=== PATIENT | female | born 1960 | race Caucasian/White ===

== ENCOUNTER 2018-01-27 01:31 | Inpatient (IN) | payer BC ==
[2018-01-27] VITALS (8 sets, daily range): BP systolic 102–170; BP diastolic 59–82
[~2018-01-27] VITALS: Ht 165.1 cm; Wt 112.2 kg
--- NOTE | 2018-01-27 01:45 | ED.ADGEN ---
Past History Past Medical History: IBS, Other Past Surgical History: Cervical Fusion, Cholecystectomy, Hysterectomy, Oophorectomy, Other Smoking: Cigarettes Alcohol Use: Occasionally Drug Use: Marijuana Adult General Chief Complaint Chief Complaint ".. I got up.. to go to the bathroom.. and I had a blackout.. I ve never had this before... My heart was racing before ... I went to bed... I have irritable bowel.. and I ve also been dizzy.. "..." and I just pooped in my pants..." HPI HPI Patient is a 57 year old female who presents with above hx and complaints abdomen discomfort, nausea, dizzy, diarrhea and syncope. Pt. denies previous episode of tachycardia, cardiac problems or dysrhythmia. Pt. any changes in food, meds or intake. Pt. has hx of irritable bowel disorder. Pt., denies any ill contracts, travel or hx of immunosuppression. Pt. states before she passed out her heart was racing. Paramedics advised she was very confused and slow to respond on their arrival. Pt. advised only time she had near syncope events previous was before her neck surgery, if she threw her head back she would black out, this symptom did not persist after cervical fusion 2004. Pt. 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 . No specific seizure hx. . Hx. or chronic Vertigo. Hx. Chronic Insomnia. Pt. currently under a lot of stress- Divorce proceeding after 40 yrs marriage. Pt. does smoke. Pt. fall was heard by daughter. She found her in the vo wall, and seemed very confused. No seizure activity. Pt. stated she was going to have IBS episode, so she helped to the bathroom. Pt. once in the bathroom passed out again. Eventually pt. regain some level of awareness. Pt. remained confused. Daughter states she did not notice if she had a change in heart rate. Pt. recent had some changes in her Insomnia med. in which the Seroquel was changed to a fast acting form and Wellbutrin added to med. regimen. Review of Systems Review of Systems Constitutional: Denies fever or chills [] Eyes: Denies change in visual acuity, redness, or eye pain [] HENT: Denies nasal congestion or sore throat [] Respiratory: Denies cough or shortness of breath [] Cardiovascular: No additional information not addressed in HPI [] GI: Complaints of generalized abdominal pain, nausea,. Denies vomiting, bloody stools . Had diarrhea after arrival to ED : Denies dysuria or hematuria [] Musculoskeletal: Denies back pain or joint pain [] Integument: Denies rash or skin lesions [] Neurologic: Denies headache, focal weakness or sensory changes []Complaints of Syncope. Dizzy. Endocrine: Denies polyuria or polydipsia [] All other systems were reviewed and found to be within normal limits, except as documented in this note. Family History Family History Non-contributory Current Medications Current Medications Current Medications Medications (Trade) Dose Ordered Sig/Jenny Start Time Stop Time Status Last Admin Dose Admin Albuterol/ Ipratropium (Duoneb) 3 ml RTQID 01/27/18 08:00 01/28/18 07:59 Aspirin (Children'S Aspirin) 81 mg DAILY 01/27/18 09:00 Enoxaparin Sodium (Lovenox 100mg Syringe) 100 mg 1X ONCE 01/27/18 06:00 01/27/18 06:01 DC Fentanyl Citrate (Fentanyl 2ml Vial) 50 mcg 1X ONCE 01/27/18 01:45 01/27/18 01:54 DC 01/27/18 02:15 50 MCG Info (Do NOT chart on this entry -- for MONITORING) 1 each PRN DAILY PRN 01/27/18 06:00 01/29/18 05:59 Iohexol (Omnipaque 300 Mg/ml) 75 ml 1X ONCE 01/27/18 06:00 01/27/18 06:01 DC 01/27/18 06:00 75 ML Lactated Ringer's 1,000 ml @ 200 mls/hr Q5H 01/27/18 09:00 Ondansetron HCl (Zofran Odt) 8 mg PRN QID PRN 01/27/18 06:00 Potassium Chloride (KCl Oral Soln) 40 meq 1X ONCE 01/27/18 04:00 01/27/18 04:11 DC 01/27/18 04:17 40 MEQ See Nursing for home meds. Allergies Allergies Allergies Coded Allergies Type Severity Reaction Last Updated Verified Penicillins Allergy Intermediate 01/27/18 Yes codeine Allergy Intermediate 01/27/18 Yes morphine Allergy Intermediate 01/27/18 Yes Physical Exam Physical Exam Constitutional: Moderate acute distress, very sedate in appearance. [] HENT: Normocephalic, atraumatic, bilateral external ears normal, oropharynx moist, no oral exudates, nose normal. dental implants. Scar Lt temporal Eyes: PERRLA, EOMI, conjunctiva normal, no discharge. [] Neck: Normal range of motion, no tenderness, supple, no stridor. [] Surgical neck scars. No bruits Cardiovascular:Heart rate regular rhythm, no murmur [] Lungs & Thorax: Bilateral breath sounds equal at apex with scattered wheezes on auscultation [] Abdomen: Bowel sounds hyperactive, soft, generalized tenderness, no masses, no pulsatile masses. [] Very distended. Some localized tenderness to Mid Rt and lower abd. Pt. declines rectal or pelvic exam at this time. Pt. developed profuse diarrhea after arrival to ED. Old surgery scars. Obese. Skin: Warm, diaphoretic, no erythema, no rash. [] Back: No tenderness, no CVA tenderness. [] Extremities: No tenderness, no cyanosis, no clubbing, ROM intact, no edema. [] Neurologic: Alert and oriented X 3, moves all ext. on request. Denies sensory changes. No gross focal deficits noted. []DTR + 2 patella and brachial. GSC 15 Psychologic: Affect anxious, judgement normal, mood normal. [] Current Patient Data Vital Signs Vital Signs Date Time Temp Pulse Resp B/P (MAP) Pulse Ox O2 Delivery O2 Flow Rate FiO2 01/27/18 03:08 85 20 111/76 (88) 98 Room Air 01/27/18 01:32 97.6 Lab Results Laboratory Tests Test 01/27/18 02:07 01/27/18 02:24 01/27/18 02:30 01/27/18 04:36 White Blood Count 9.6 x10^3/uL (4.0-11.0) Red Blood Count 5.02 x10^6/uL (3.50-5.40) Hemoglobin 15.0 g/dL (12.0-15.5) Hematocrit 43.9 % (36.0-47.0) Mean Corpuscular Volume 88 fL (79-100) Mean Corpuscular Hemoglobin 30 pg (25-35) Mean Corpuscular Hemoglobin Concent 34 g/dL (31-37) Red Cell Distribution Width 14.5 % (11.5-14.5) Platelet Count 202 x10^3/uL (140-400) Neutrophils (%) (Auto) 61 % (31-73) Lymphocytes (%) (Auto) 32 % (24-48) Monocytes (%) (Auto) 5 % (0-9) Eosinophils (%) (Auto) 2 % (0-3) Basophils (%) (Auto) 1 % (0-3) Neutrophils # (Auto) 5.9 x10^3uL (1.8-7.7) Lymphocytes # (Auto) 3.0 x10^3/uL (1.0-4.8) Monocytes # (Auto) 0.5 x10^3/uL (0.0-1.1) Eosinophils # (Auto) 0.1 x10^3/uL (0.0-0.7) Basophils # (Auto) 0.1 x10^3/uL (0.0-0.2) Sodium Level 142 mmol/L (136-145) Potassium Level 3.1 mmol/L (3.5-5.1) L Chloride Level 102 mmol/L (98-107) Carbon Dioxide Level 30 mmol/L (21-32) Anion Gap 10 (6-14) Blood Urea Nitrogen 9 mg/dL (7-20) Creatinine 1.2 mg/dL (0.6-1.0) H Estimated GFR (Cockcroft-Gault) 46.1 Glucose Level 133 mg/dL (70-99) H Calcium Level 8.9 mg/dL (8.5-10.1) Magnesium Level 2.1 mg/dL (1.8-2.4) Total Bilirubin 0.3 mg/dL (0.2-1.0) Direct Bilirubin 0.1 mg/dL (0.0-0.2) Aspartate Amino Transferase (AST) 22 U/L (15-37) Alanine Aminotransferase (ALT) 35 U/L (14-59) Alkaline Phosphatase 78 U/L (46-116) Creatine Kinase 146 U/L (26-192) Creatine Kinase MB (Mass) < 0.5 ng/mL (0.0-3.6) Creatine Kinase MB Relative Index 0.3 % (0-4) Troponin I Quantitative < 0.017 ng/mL (0-0.055) HS-Yyy-Q-Type Natriuretic Peptide 13 pg/mL (0-124) Total Protein 7.0 g/dL (6.4-8.2) Albumin 3.4 g/dL (3.4-5.0) Lipase 165 U/L (73-393) Stool Occult Blood Positive (NEG) Urine Collection Type U cath Urine Color Yellow Urine Clarity Clear Urine pH 5.5 Urine Specific [place] >=1.030 Urine Protein 100 mg/dl (NEG-TRACE) Urine Glucose (UA) Neg mg/dL (NEG) Urine Ketones (Stick) Neg mg/dL (NEG) Urine Blood Neg (NEG) Urine Nitrite Neg (NEG) Urine Bilirubin Neg (NEG) Urine Urobilinogen Dipstick 0.2 mg/dL (0.2 mg/dL) Urine Leukocyte Esterase Neg (NEG) Urine RBC 0 /HPF (0-2) Urine WBC Rare /HPF (0-4) Urine Squamous Epithelial Cells Occ /LPF Urine Bacteria 0 /HPF (0-FEW) Urine Opiates Screen Neg (NEG) Urine Methadone Screen Neg (NEG) Urine Barbiturates Neg (NEG) Urine Phencyclidine Screen Neg (NEG) Urine Amphetamine/Methamphetamine Neg (NEG) Urine Benzodiazepines Screen Neg (NEG) Urine Cocaine Screen Neg (NEG) Urine Cannabinoids Screen Pos (NEG) Urine Ethyl Alcohol Neg (NEG) Prothrombin Time 11.6 SEC (9.4-11.4) H Prothrombin Time INR 1.1 (0.9-1.1) PTT 23 SEC (23-33) D-Dimer (Andreina) > 19.00 mg/L (0.00-0.50) H EKG EKG My interpretation of EKG show[] sinus rhythm at 79 bpm. No acute morphology appreciated. Radiology/Procedures Radiology/Procedures [] Impressions: My interpretation of CXR and Abd. films shows no acute cardiopulmonary findings on PA and lateral chest. Does have hardware in neck and lower mandible. No free air in the diaphragm. There are clips from previous cholecystectomy. Degenerative joint changes. Nonspecific bowel gas pattern My interpretation of CT head shows no shift, mass, edema, bleed, or fracture. 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 of Temporal Depress fx. - repaired as Teenager) CT of chest pending at time of admission. Course & Med Decision Making Course & Med Decision Making Pertinent Labs and Imaging studies reviewed. (See chart for details). Discussed presentation, testing and tx. plan with Dr. Houston. [] Final Impression Final Impression 1. Syncope 2. Dizzy- Vertigo- Hx. of chronic Vertigo 3. Hx. Irritable Bowel[] 4. Diarrhea after arrival to ED 5. Marijuana and Tobacco Use 6. Hypokalemia 7. Dehydration 8. Elevated creat. 9. Elevated D-dimer 10.Hx. Insomnia Dragon Disclaimer Dragon Disclaimer This electronic medical record was generated, in whole or in part, using a voice recognition dictation system. CED SPARROW MD Jan 27, 2018 01:45
[2018-01-27] MEDS ORDERED: ONDANSETRON ODT 4 MG TAB.RAPDIS PO ONE (02:00)
[2018-01-27] MEDS ORDERED: ASPIRIN 81 MG TAB.CHEW PO ONE (02:00)
[2018-01-27] MEDS ORDERED: IV RINGERS SOLUTION,LACTATED 1,000 ML IV SCH ×2 (02:00→09:00)
[2018-01-27 02:51] LABS: BASO # 0.1 x10^3/uL (0.0-0.2); BASO % 1 % (0-3); EOS # 0.1 x10^3/uL (0.0-0.7); EOS % 2 % (0-3); HEMATOCRIT 43.9 % (36.0-47.0); LYMPH % 32 % (24-48); MEAN CORPUSCULAR HEMOGLOBIN 30 pg (25-35); MEAN CORPUSCULAR HGB CONC 34 g/dL (31-37); MEAN CORPUSCULAR VOLUME 88 fL (79-100); MONO # 0.5 x10^3/uL (0.0-1.1); MONO % 5 % (0-9); NEUT # 5.9 x10^3uL (1.8-7.7); NEUT % 61 % (31-73); PLATELET COUNT 202 x10^3/uL (140-400); RED BLOOD COUNT 5.02 x10^6/uL (3.50-5.40); RED CELL DISTRIBUTION WIDTH 14.5 % (11.5-14.5); WHITE BLOOD COUNT 9.6 x10^3/uL (4.0-11.0)
[2018-01-27 02:54] LABS: BACTERIA,URINE 0 /HPF (0-FEW); BILIRUBIN,URINE NEG (NEG); CLARITY,URINE CLEAR; COLOR,URINE YELLOW; GLUCOSE,URINE NEG (NEG); NITRITE,URINE NEG (NEG); RBC,URINE 0 /HPF (0-2); SQUAMOUS EPITHELIAL CELL,UR OCC /LPF; UROBILINOGEN,URINE 0.2 mg/dL (0.2 mg/dL); WBC,URINE RARE /HPF (0-4)
--- NOTE | 2018-01-27 02:54 | EKG ---
[address] [address] Test Date: 2018-01-27 Test Time: 02:49:19 Pat Name: BEATRIZ MURILLO Department: Room: Gender: F [employer]: : 1960 Requested By: CED SPARROW Order Number: [id number] Reading MD: Phong Romo MD Measurements Intervals [place] Rate: 79 P: 57 NM: 150 QRS: 39 QRSD: 76 T: 69 QT: 398 QTc: 457 Interpretive Statements SINUS RHYTHM Electronically Signed On 01-28-2018 10:20:59 CDT by Phong Romo MD
[2018-01-27 02:56] LABS: BARBITURATES NEG (NEG); BENZODIAZEPINES NEG (NEG); CANNABINOIDS POS (NEG); COCAINE NEG (NEG); METHADONE NEG (NEG); OPIATES NEG (NEG); PHENCYCLIDINE NEG (NEG)
[2018-01-27 02:57] LABS: FECAL OB PT POSITIVE (NEG)
[2018-01-27 02:59] LABS: AMPHETAMINE/METHAMPHETAMINE NEG (NEG)
[2018-01-27 03:09] LABS: ALBUMIN 3.4 g/dL (3.4-5.0); ALK PHOS 78 U/L (46-116); ALT (SGPT) 35 U/L (14-59); ANION GAP 10 (6-14); AST (SGOT) 22 U/L (15-37); BLOOD UREA NITROGEN 9 mg/dL (7-20); CALCIUM 8.9 mg/dL (8.5-10.1); CARBON DIOXIDE 30 mmol/L (21-32); CHLORIDE 102 mmol/L (98-107); CREATININE 1.2 mg/dL (0.6-1.0); DIRECT BILIRUBIN 0.1 mg/dL (0.0-0.2); GFR 46.1; GLUCOSE 133 mg/dL (70-99); LIPASE 165 U/L (73-393); MAGNESIUM 2.1 mg/dL (1.8-2.4); POTASSIUM 3.1 mmol/L (3.5-5.1); SODIUM 142 mmol/L (136-145); TOTAL BILIRUBIN 0.3 mg/dL (0.2-1.0)
[2018-01-27] MEDS ORDERED: IV RINGERS SOLUTION,LACTATED 1,000 ML IV ONE (04:00)
[2018-01-27] MEDS ORDERED: POTASSIUM CHLORIDE 20 MEQ/15 ML ORAL LIQUID. PO ONE (04:00)
--- NOTE | 2018-01-27 04:34 | RAD ---
EXAM: CT HEAD WITHOUT CONTRAST. HISTORY: Syncope, dizziness, amnesia, hypertension. TECHNIQUE: Computed tomography of the head was performed without intravenous contrast. COMPARISON: None. FINDINGS: There is no intracranial hemorrhage. Minimal encephalomalacia underlies left temporal craniotomy. Moses-white differentiation is preserved elsewhere. The ventricles are normal in size and position. There is mild mucosal thickening in the right ethmoid air cells. The orbits are unremarkable. The temporal bones are unremarkable. IMPRESSION: 1. No acute intracranial findings. 2. Mild encephalomalacia underlying left temporal craniotomy. Correlate with surgical history. *One or more of the following individualized dose reduction techniques were utilized for this examination: 1. Automated exposure control. 2. Adjustment of the mA and/or kV according to patient size. 3. Use of iterative reconstruction technique. Electronically signed by: Zhane Sanders MD (01/27/2018 4:30 AM) [id number]
--- NOTE | 2018-01-27 05:37 | RAD ---
EXAM: 1. Chest 2 views. 2. Abdomen 2 views. HISTORY: Syncope, dizziness, nausea, abdominal pain. COMPARISON: None. FINDINGS: The inspiration is small. There are no confluent infiltrates. There is no pneumothorax or pleural effusion. The heart is not enlarged. Anterior cervical discectomy and fusion changes are noted. There is no pneumoperitoneum. There are no distended small bowel loops or significant air-fluid levels. There is gas distally. Cholecystectomy clips are noted. There are moderate degenerative changes of the lower lumbar spine. IMPRESSION: 1. No confluent infiltrates. 2. No evidence of obstruction. Electronically signed by: Zhane Sanders MD (01/27/2018 5:33 AM) [facility]
[2018-01-27] MEDS ORDERED: IOHEXOL 300 MG/ML 75 ML VIAL. IV ONE (06:00)
[2018-01-27] MEDS ORDERED: ONDANSETRON ODT 4 MG TAB.RAPDIS PO PRN (06:00)
[2018-01-27] MEDS ORDERED: ENOXAPARIN ** NOTE DOSE ** SYRINGE SQ ONE (06:00)
[2018-01-27] MEDS ORDERED: CONTRAST GIVEN MC PRN (06:00)
--- NOTE | 2018-01-27 06:41 | RAD ---
EXAM: CT ANGIOGRAPHY OF THE CHEST WITH AND WITHOUT INTRAVENOUS CONTRAST. HISTORY: Syncope, elevated d-dimer, dyspnea. TECHNIQUE: Computed tomographic angiography of the chest was performed before and after the intravenous administration of 75 mL Omnipaque 300. 3-D maximum intensity projections were also performed. COMPARISON: None. FINDINGS: Images of the upper abdomen reveal no acute abnormality. Bone windows reveal no suspicious lesions. No pulmonary emboli are identified. There is no aortic dissection or aneurysm. There are no pathologically enlarged mediastinal or axillary lymph nodes. There is no pleural or pericardial effusion. The heart is not enlarged. An uncalcified nodule in the left lower lobe on image 54 measures 5 mm. IMPRESSION: 1. No pulmonary embolism. 2. A 5 mm uncalcified left lower lobe pulmonary nodule is most likely benign at this size. This requires no further follow-up in the absence of strong risk factors. If there are strong risk factors and long-term stability is not already known, follow-up is suggested in 6-12 months. *One or more of the following individualized dose reduction techniques were utilized for this examination: 1. Automated exposure control. 2. Adjustment of the mA and/or kV according to patient size. 3. Use of iterative reconstruction technique. Electronically signed by: Zhane Sanders MD (01/27/2018 6:37 AM) [id number]
[2018-01-27] MEDS: IPRATRPIUM/ALBUTEROL 0.5/2.5MG 3 ML NEBU. NEB SCH ×4 (08:00→14:43)
[2018-01-27] MEDS ORDERED: ASPIRIN 81 MG TAB.CHEW PO SCH (09:00)
[2018-01-27] MEDS ORDERED: LISI1TAB5 PO (11:20)
[2018-01-27] MEDS ORDERED: QUET300T5 PO (11:20)
[2018-01-27] MEDS ORDERED: OMEP20CA9 PO (11:20)
[2018-01-27] MEDS ORDERED: HYDR-2762 PO (11:20)
[2018-01-27] MEDS ORDERED: BUPR100T8 PO (11:20)
[2018-01-27] MEDS: POTASSIUM CL 40MEQ D5-0.45NACL 1,000 ML IV SCH (12:02)
[2018-01-27] MEDS ORDERED: HYDROcodone/APAP 7.5/325MG 1 TAB TABLET PO PRN (12:15)
[2018-01-27] MEDS ORDERED: ACETAMINOPHEN 325 MG TABLET PO PRN (12:30)
[2018-01-27] MEDS ORDERED: IOHEXOL 240 MG/ML 50ML VIAL. ONE (12:38)
--- NOTE | 2018-01-27 12:41 | RAD ---
Bilateral lower extremity venous doppler ultrasound History: Syncope, elevated d-dimer Comparison: None Findings: Multiple grayscale, color, and duplex spectral analysis sonographic images were acquired of the bilateral lower extremity veins to evaluate for the presence of DVT. There is normal phasicity. Normal compression, color-flow, and augmentation is demonstrated from the bilateral common femoral to the popliteal veins. There is normal color flow of segments of the calf veins. Impression: 1. There is no evidence of deep venous thrombosis from the bilateral common femoral to popliteal veins. Electronically signed by: Hernán Wasserman MD (01/27/2018 12:37 PM) [id number]
--- NOTE | 2018-01-27 14:29 | RAD ---
Examination: CT of the abdomen pelvis with oral contrast HISTORY: History of bloody stools COMPARISON: None available TECHNIQUE: Axial CT images of the abdomen is performed without IV contrast and with oral contrast. Coronal and sagittal reformats are performed Exposure: One or more of the following individualized dose reduction techniques were utilized for this examination: 1. Automated exposure control 2. Adjustment of the mA and/or kV according to patient size 3. Use of iterative reconstruction technique FINDINGS: The bibasilar lungs are clear. No evidence of free air identified in the abdomen. The visualized liver demonstrates a peripherally calcified density measuring 7 mm could be a hemangioma. The visualized spleen, adrenals grossly appears unremarkable. The stomach is mildly distended. There is a small fatty density measuring 6.5 mm in the tail of the pancreas. The small bowel is nondilated. Feces and gas noted in the ascending and transverse colon. There is mild thickening of the descending colon with surrounding inflammatory fat stranding likely colitis. Urinary bladder is mildly distended. The appendix is normal. Visualized kidneys grossly appears unremarkable. No evidence of hydronephrosis. The urinary bladder is mildly distended. Moderate degenerative changes lumbar spine. Small sclerotic density identified in the T10, T11 vertebral bodies. IMPRESSION: 1. Diffuse thickening of the descending colon with surrounding inflammatory fat stranding likely colitis. 2. Small sclerotic densities identified in the T10, T11 vertebral bodies probably bone islands or less likely sclerotic metastasis. A bone scan may be useful for further evaluation. Electronically signed by: Sander Caba MD (01/27/2018 2:25 PM) [id number]
--- NOTE | 2018-01-27 14:33 | RAD ---
EXAM: Carotid Doppler sonogram. HISTORY: Syncope. TECHNIQUE: Moses scale and color Doppler sonographic evaluation of the neck with spectral waveform analysis was performed and static images are submitted for review. FINDINGS: There is mild atherosclerotic plaque throughout the right common carotid artery, bilateral carotid bulbs, right external carotid artery and bilateral internal carotid arteries. The peak systolic velocity within the right common carotid artery is 114 cm/sec. The peak systolic velocity within the right internal carotid artery is 79 cm/sec and the end diastolic velocity within the right internal carotid artery is 31 cm/sec. The right ICA/CCA ratio is 0.89. The peak systolic velocity within the left common carotid artery is 119 cm/sec. The peak systolic velocity within the left internal carotid artery is 157 cm/sec and the end diastolic velocity within the left internal carotid artery is 49 cm/sec. The left ICA/CCA ratio is 1.5. There is normal antegrade flow within both vertebral arteries. IMPRESSION: 1. Elevated peak systolic velocity and end-diastolic velocity within the left ICA. Despite normal ICA to CCA ratio, this suggests 50-69% stenosis. 2. No hemodynamically significant stenosis within the right internal carotid artery or bilateral vertebral arteries. 3. Mild atherosclerotic plaque throughout the right common carotid artery, bilateral carotid bulbs, right external carotid artery and bilateral internal carotid arteries. PQRS Compliance Statement - Stenosis calculations for CT, MR and conventional angiography are based upon measurement of the distal ICA diameter in accordance with the NASCET methodology. Stenosis calculations for carotid ultrasound studies are derived from validated velocity criteria which are known to correlate with the NASCET methodology. Electronically signed by: Sherron Hudson MD (01/27/2018 2:29 PM) [place] [id number]
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
--- NOTE | 2018-01-27 16:15 | PDOC2 ---
ROSA REYES TAIL TRIMMER 01/27/18 1614: CONSULT Date of Admission DATE: 01/27/18 TIME: 15:58 Reason for Consult: Syncope Referring Physician: Dr Houston Problem List Problems Medical Problems: (1) Syncope and collapse Status: Acute History of Present Illness This is a pleasant 57-year-old patient who was brought into the emergency room via EMS after syncopal episode. She has a past medical history of hypertension , vertigo,irritable bowel syndrome, PTSD /bipolar disease, and a brain tumor followed at [facility]. Last evening she received legal papers in the mail and became very upset. She was at her daughter's house so she did not want to cause an emotional seen so she decided to go to bed early. She had abdominal cramping and had a hard time falling asleep so she took her Seroquel and an anti anxiety medication. She feels it kicked and quicker than usual and she felt very sedated. She woke up a few hours later and her stomach was severely cramping but she did not want to use her daughters commode so she was trying to lay in bed and deal with it. She says by the time she got up she was diaphoretic, had severe abdominal cramps and was extremely lightheaded upon standing and could feel her heart racing. By the time she reached the bathroom door she remembers going out when she came back around she knew she had to get to the toilet so she was crawling towards the bathroom. Her daughter helped her into the bathroom where she passed out again. She was confused and her daughter called EMS. She was very sluggish and took a while to become reoriented. Recently she has been under a great deal of stress going through a divorce. And she has had multiple episodes of her IBS with diarrhea. She has also had a remarkable amount of diaphoretic episodes. They are not related to any activity , chest pain or medication that she knows about. in the past when her IBS is flaring up she would have palpitations and lightheadedness so she did not seek care because she felt like this was just part of her disease process. She did go to [facility] in the past 6-9 months with chest discomfort and had a workup done there. She is not sure if they did a stress test or echocardiogram so we will request records. She was told that everything was normal at discharge and did not have to follow-up. On admission to the ER she was found to be hypokalemic and dehydrated. Her blood pressure was on the low side of normal and her heart rate was stable. Through the night she has not had any arrhythmias and no further episodes of passing out since starting on IV fluid. PAST MEDICAL HISTORY: Her past medical history is significant for hypertension. In the past she has been lightheaded when her blood pressure is low and the medication had to be decreased. The lightheadedness she has been having recently is similar to that. She has also had Vertigo, irritable bowel syndrome, posttraumatic stress disorder, insomnia, bipolar disease. She is followed at [facility] for brain tumor. PAST SURGICAL HISTORY: Her past surgical history includes a cholecystectomy, total abdominal hysterectomy, bilateral oophorectomy and a fusion of her cervical spine. Prior to her cervical spine fusion she did have some lightheaded near syncopal episodes but they resolved and 2005 with her surgery. ALLERGIES: penicillin, codeine and morphine. MEDICATIONS: lisinopril/hydrochlorothiazide 20/12.5 mg once a day, hydrocodone/CPAP 7.5/325 one tablet every 6 hours, Wellbutrin SR 100 mg once a day, quetiapine fumarate 300 mg to take 2 tablets at bedtime, omeprazole 20 mg p.o. daily. FAMILY HISTORY: Her father had his 1st myocardial infarction at age 53 and then had subsequent stents and quadruple bypass and at age 67. Her mother had a coronary stent but it was after age 80. SOCIAL HISTORY: she lives at home and is in the process of going through divorce. She has family that is close and supportive. She smokes 1 pack of cigarettes a day and has since she was in her 20s. She denies any alcohol use. She does smoke marijuana multiple times a week - she is self medicating for her insomnia/ PTSD. Review of systems - review of 10 organ systems is negative except for as in HPI. Physical examination GENERAL: This is a well developed, well nourished female. No apparent distress. SKIN: Warm and dry with normal skin turgor. Negative for pallor. No lesions or rashes noted. EYES: Conjunctiva are clear. Extraocular movements are intact. No xanthelasma. HEAD AND NECK: Oral mucosa is moist. There is no cyanosis. Neck is supple. Jugular venous pressure is flat. Carotid pulses are 2/2 bilaterally. No carotid bruits. There is no obvious thyromegaly. HEART: Regular rate and irregular rhythm. Normal S1 and S2. No S3. No S4. No significant murmur LUNGS: Effort is good. There is symmetric expansion bilaterally. Clear to auscultation bilaterally. No wheezes. No crackles. No rhonchi. ABDOMEN: Normal active bowel sounds. Soft. Nontender. EXTREMITIES: No clubbing. No cyanosis. trace edema of lower extremities. Palpable pedal pulses. MUSCULOSKELETAL: No kyphosis. No scoliosis. No localized tenderness or stiffness. Gait appears normal. NEUROLOGIC: Alert and oriented times three. Cranial nerves III-XII are grossly intact. Good motor tone and strength in the upper and lower extremities bilaterally. PSYCHOLOGIC: This is a pleasant patient with a normal affect. 1. Syncope -likely from orthostasis/dehydration with IBS. Agree with IV fluid and replacing potassium. So far she has not had any arrhythmia but will continue to monitor while she is in the hospital and will consider outpatient event monitor. Plan for orthostatic blood pressures and may need to adjust lisinopril hydrochlorothiazide and delete the HCT. Plan for echocardiogram today. 2. Hypertension. She is high at this point right now we will go ahead and restart her home dose of lisinopril and leave off the hydrochlorothiazide. 3. Palpitations -will check TSH to for plan for echocardiogram. Likely related to low potassium, dehydration and stress. -- Of note she did have a recent cardiac workup at [place] and we will request the records. Current Medications Current Medications Aspirin (Children'S Aspirin) 324 mg 1X ONCE PO Last administered on 01/27/18at 02:16; Start 01/27/18 at 02:00; Stop 01/27/18 at 02:01; Status DC Lactated Ringer's 1,000 ml @ 1,000 mls/hr Q1H IV Last administered on at 02:14; Start 01/27/18 at 02:00; Stop 01/27/18 at 02:59; Status DC Ondansetron HCl (Zofran Odt) 8 mg 1X ONCE PO Last administered on 01/27/18at 02 :15; Start 01/27/18 at 02:00; Stop 01/27/18 at 02:01; Status DC Fentanyl Citrate (Fentanyl 2ml Vial) 50 mcg 1X ONCE IM Last administered on at 02:15; Start 01/27/18 at 01:45; Stop 01/27/18 at 01:54; Status DC Potassium Chloride (KCl Oral Soln) 40 meq 1X ONCE PO Last administered on 01/27at 04:17; Start 01/27/18 at 04:00; Stop 01/27/18 at 04:11; Status DC Lactated Ringer's 1,000 ml @ 1,000 mls/hr 1X ONCE IV Last administered on at 04:26; Start 01/27/18 at 04:00; Stop 01/27/18 at 04:59; Status DC Albuterol/ Ipratropium (Duoneb) 3 ml RTQID NEB ; Start 01/27/18 at 08:00; Stop 01/28/18 at 07:59 Lactated Ringer's 1,000 ml @ 200 mls/hr Q5H IV ; Start 01/27/18 at 09:00; Stop 01/27/18 at 12:18; Status DC Ondansetron HCl (Zofran Odt) 8 mg PRN QID PRN PO VOMITING; Start 01/27/18 at 06 :00 Aspirin (Children'S Aspirin) 81 mg DAILY PO ; Start 01/27/18 at 09:00; Stop at 12:15; Status DC Enoxaparin Sodium (Lovenox 100mg Syringe) 100 mg 1X ONCE SQ ; Start 01/27/18 at 06:00; Stop 01/27/18 at 12:15; Status DC Iohexol (Omnipaque 300 Mg/ml) 75 ml 1X ONCE IV Last administered on 01/27/18at 06:00; Start 01/27/18 at 06:00; Stop 01/27/18 at 06:01; Status DC Info (Do NOT chart on this entry -- for MONITORING) 1 each PRN DAILY PRN MC SEE COMMENTS; Start 01/27/18 at 06:00; Stop 01/29/18 at 05:59 Pneumococcal Polyvalent Vaccine (Pneumovax 23) 0.5 ml ONCE ONCE VAX IM ; Start 01/28/18 at 09:00; Stop 01/28/18 at 09:01 Potassium Chloride/Dextrose/ Sod Cl 1,000 ml @ 75 mls/hr [id number] IV Last administered on 01/27/18at 12:02; Start 01/27/18 at 11:30 Acetaminophen/ Hydrocodone Bitart (Lortab 7.5/325) 1 tab PRN Q6HRS PRN PO PAIN Last administered on 01/27/18at 12:39; Start 01/27/18 at 12:15 Bupropion HCl (Wellbutrin Sr) 100 mg DAILYWBKFT PO ; Start 01/28/18 at 08:00 Non-Formulary Medication (Omeprazole ) 1 cap DAILY PO ; Start 01/28/18 at 09:00 ; Stop 01/28/18 at 09:00; Status DC Quetiapine Fumarate (SEROquel) 600 mg HS PO ; Start 01/27/18 at 21:00 Acetaminophen (Tylenol) 650 mg PRN Q6HRS PRN PO PAIN / TEMP; Start 01/27/18 at 12:30 Pantoprazole Sodium (Protonix) 40 mg DAILYAC PO ; Start 01/28/18 at 07:30 Iohexol (Omnipaque 240 Mg/ml) 50 ml STK-MED ONCE .ROUTE ; Start 01/27/18 at 12: 38; Stop 01/27/18 at 12:39; Status DC Ciprofloxacin Lactate 200 ml @ 200 mls/hr Q12HR IV ; Start 01/27/18 at 21:00 Metronidazole 100 ml @ 100 mls/hr Q8HRS IV ; Start 01/27/18 at 22:00 Active Scripts Active Reported Omeprazole 20 Mg Capsule. 1 Cap PO DAILY Lisinopril-Hctz 20-12.5 Mg Tab (Lisinopril/Hydrochlorothiazide) 1 Each Tablet 1 Tab PO DAILY Hydrocodone-Apap 7.5-325 (Hydrocodone Bit/Acetaminophen) 1 Each Tablet 1 Tab PO PRN Q6HRS PRN Bupropion Hcl Sr (Bupropion Hcl) 100 Mg Tablet.er 1 Tab PO DAILYWBKFT Seroquel (Quetiapine Fumarate) 300 Mg Tablet 2 Tab PO QHS Allergies: Coded Allergies: Penicillins (Verified Allergy, Intermediate, 01/27/18) codeine (Verified Allergy, Intermediate, 01/27/18) morphine (Verified Allergy, Intermediate, 01/27/18) VITALS Vital Signs Date Time Temp Pulse Resp B/P (MAP) Pulse Ox O2 Delivery O2 Flow Rate FiO2 01/27/18 14:25 85 167/76 (106) 01/27/18 14:23 98.2 20 95 Room Air Labs Laboratory Tests Test 01/27/18 02:07 01/27/18 02:24 01/27/18 02:30 01/27/18 04:36 White Blood Count 9.6 x10^3/uL (4.0-11.0) Red Blood Count 5.02 x10^6/uL (3.50-5.40) Hemoglobin 15.0 g/dL (12.0-15.5) Hematocrit 43.9 % (36.0-47.0) Mean Corpuscular Volume 88 fL (79-100) Mean Corpuscular Hemoglobin 30 pg (25-35) Mean Corpuscular Hemoglobin Concent 34 g/dL (31-37) Red Cell Distribution Width 14.5 % (11.5-14.5) Platelet Count 202 x10^3/uL (140-400) Neutrophils (%) (Auto) 61 % (31-73) Lymphocytes (%) (Auto) 32 % (24-48) Monocytes (%) (Auto) 5 % (0-9) Eosinophils (%) (Auto) 2 % (0-3) Basophils (%) (Auto) 1 % (0-3) Neutrophils # (Auto) 5.9 x10^3uL (1.8-7.7) Lymphocytes # (Auto) 3.0 x10^3/uL (1.0-4.8) Monocytes # (Auto) 0.5 x10^3/uL (0.0-1.1) Eosinophils # (Auto) 0.1 x10^3/uL (0.0-0.7) Basophils # (Auto) 0.1 x10^3/uL (0.0-0.2) Sodium Level 142 mmol/L (136-145) Potassium Level 3.1 mmol/L (3.5-5.1) Chloride Level 102 mmol/L (98-107) Carbon Dioxide Level 30 mmol/L (21-32) Anion Gap 10 (6-14) Blood Urea Nitrogen 9 mg/dL (7-20) Creatinine 1.2 mg/dL (0.6-1.0) Estimated GFR (Cockcroft-Gault) 46.1 Glucose Level 133 mg/dL (70-99) Calcium Level 8.9 mg/dL (8.5-10.1) Magnesium Level 2.1 mg/dL (1.8-2.4) Total Bilirubin 0.3 mg/dL (0.2-1.0) Direct Bilirubin 0.1 mg/dL (0.0-0.2) Aspartate Amino Transf (AST/SGOT) 22 U/L (15-37) Alanine Aminotransferase (ALT/SGPT) 35 U/L (14-59) Alkaline Phosphatase 78 U/L (46-116) Creatine Kinase 146 U/L (26-192) Creatine Kinase MB (Mass) < 0.5 ng/mL (0.0-3.6) Creatine Kinase MB Relative Index 0.3 % (0-4) Troponin I Quantitative < 0.017 ng/mL (0-0.055) VD-Lgo-K-Type Natriuretic Peptide 13 pg/mL (0-124) Total Protein 7.0 g/dL (6.4-8.2) Albumin 3.4 g/dL (3.4-5.0) Lipase 165 U/L (73-393) Thyroid Stimulating Hormone (TSH) 3.644 uIU/mL (0.358-3.740) Stool Occult Blood Positive (NEG) Urine Collection Type U cath Urine Color Yellow Urine Clarity Clear Urine pH 5.5 Urine Specific [place] >=1.030 Urine Protein 100 mg/dl (NEG-TRACE) Urine Glucose (UA) Neg mg/dL (NEG) Urine Ketones (Stick) Neg mg/dL (NEG) Urine Blood Neg (NEG) Urine Nitrite Neg (NEG) Urine Bilirubin Neg (NEG) Urine Urobilinogen Dipstick 0.2 mg/dL (0.2 mg/dL) Urine Leukocyte Esterase Neg (NEG) Urine RBC 0 /HPF (0-2) Urine WBC Rare /HPF (0-4) Urine Squamous Epithelial Cells Occ /LPF Urine Bacteria 0 /HPF (0-FEW) Urine Opiates Screen Neg (NEG) Urine Methadone Screen Neg (NEG) Urine Barbiturates Neg (NEG) Urine Phencyclidine Screen Neg (NEG) Urine Amphetamine/Methamphetamine Neg (NEG) Urine Benzodiazepines Screen Neg (NEG) Urine Cocaine Screen Neg (NEG) Urine Cannabinoids Screen Pos (NEG) Urine Ethyl Alcohol Neg (NEG) Prothrombin Time 11.6 SEC (9.4-11.4) Prothromb Time International Ratio 1.1 (0.9-1.1) Activated Partial Thromboplast Time 23 SEC (23-33) D-Dimer (Andreina) > 19.00 mg/L (0.00-0.50) JOAQUÍN RUIZ Jr, MD 01/31/18 1106: CONSULT Assessment/Plan The patient was seen by Rosa Reyes APRN and I have reviewed her findings and plan and agree with above. Due to staffing constraints, we did not have an attending available on this day to see the patient. MD INGRID Austin Jr., JANAE M APRN Jan 27, 2018 16:14 JOAQUÍN RUIZ Jr, MD Jan 31, 2018 11:06
[2018-01-27] MEDS ORDERED: LISINOPRIL 10 MG TABLET PO ONE (16:45)
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
[2018-01-27] MEDS ORDERED: QUEtiapine 100 MG TABLET. PO SCH ×2 (21:00→21:30)
[2018-01-27] MEDS: CIPROFLOXACIN 400MG PREMIX 200 ML IV SCH (21:28)
[2018-01-28 05:41] VITALS: BP 127/77
[2018-01-28] MEDS: POTASSIUM CL 40MEQ D5-0.45NACL 1,000 ML IV SCH (05:44)
[2018-01-28 06:42] LABS: ALBUMIN/GLOBULIN RATIO 0.9 (1.0-1.7); CALCIUM 8.2 mg/dL (8.5-10.1); CREATININE 1.1 mg/dL (0.6-1.0); POTASSIUM 3.8 mmol/L (3.5-5.1); TOTAL BILIRUBIN 0.3 mg/dL (0.2-1.0); TOTAL PROTEIN 6.2 g/dL (6.4-8.2)
[2018-01-28 06:53] LABS: BASO # 0.1 x10^3/uL (0.0-0.2); BASO % 1 % (0-3); EOS # 0.2 x10^3/uL (0.0-0.7); EOS % 2 % (0-3); HEMATOCRIT 39.6 % (36.0-47.0); HEMOGLOBIN 13.4 g/dL (12.0-15.5); LYMPH # 2.5 x10^3/uL (1.0-4.8); LYMPH % 33 % (24-48); MEAN CORPUSCULAR HEMOGLOBIN 30 pg (25-35); MEAN CORPUSCULAR HGB CONC 34 g/dL (31-37); MEAN CORPUSCULAR VOLUME 88 fL (79-100); MONO # 0.5 x10^3/uL (0.0-1.1); MONO % 7 % (0-9); NEUT # 4.3 x10^3uL (1.8-7.7); NEUT % 57 % (31-73); PLATELET COUNT 204 x10^3/uL (140-400); RED BLOOD COUNT 4.49 x10^6/uL (3.50-5.40); RED CELL DISTRIBUTION WIDTH 14.4 % (11.5-14.5); WHITE BLOOD COUNT 7.5 x10^3/uL (4.0-11.0)
[2018-01-28] MEDS ORDERED: PANTOPRAZOLE 40 MG TABLET. PO SCH (07:30)
[2018-01-28] MEDS ORDERED: buPROPion SR 100 MG TABLET.SA. PO SCH (08:00)
[2018-01-28] MEDS: CIPROFLOXACIN 400MG PREMIX 200 ML IV SCH (08:43)
[2018-01-28] MEDS ORDERED: LISINOPRIL 10 MG TABLET PO SCH (09:00)
[2018-01-28] MEDS ORDERED: NON FORMULARY ITEM (Omeprazole 1 CAP) PO SCH (09:00)
[2018-01-28] MEDS ORDERED: PNEUMOC CONJ VACC 23-VALENT 0.5 ML VIAL. VAX IM ONE (09:00)
--- NOTE | 2018-01-28 09:45 | PN ---
DATE: 01/28/2018 SUBJECTIVE: The patient denies any new medical or neurological complaints, but she continues to have dizziness described as "wobbling," but no vertigo. OBJECTIVE: GENERAL: Obese female, not in acute distress. VITAL SIGNS: Blood pressure 127/77, respiratory rate 20, pulse is 67, temperature 97.7, oxygen saturation 95% on room air. HEENT: Normocephalic, atraumatic, otherwise unremarkable. NECK: Supple. Negative for carotid bruit, lymphadenopathy or thyromegaly. LUNGS: Clear to A and P. CARDIOVASCULAR: Regular rate and rhythm, normal S1, S2. There is no S3, S4 or murmur. ABDOMEN: Soft. Bowel sounds positive. EXTREMITIES: Negative for cyanosis, clubbing or pitting edema. NEUROLOGIC: Mental status: The patient is alert and oriented x 3. Speech is fluent. There is no language dysfunction. The patient denies hallucination or delusion. Cranial nerves are grossly intact. Motor Examination: No focal muscle bulk was seen. The tone is normal. The strength is 5/5 throughout. Sensory examination revealed normal pinprick, light touch, vibratory and position senses. Deep tendon reflexes were symmetric and hypoactive with absent Achilles responses. Gait and coordination are normal. LABORATORY DATA: CBC revealed white blood cells of 7.5 thousand, hemoglobin 13.4, hematocrit 39.6, platelet count 204,000. Chemistry revealed a sodium of 143, potassium 3.8, chloride 107, CO2 is 32, BUN 7, creatinine 1.1, glucose is 115, calcium is 8.2. TSH is normal. IMPRESSION: 1. Dizziness, described as wobbling. No vertigo. Otherwise, normal neurological examination. 2. Multiple psychiatric problems include bipolar disorder, anxiety and depression and posttraumatic stress disorders. 3. Syncope versus seizure-like activities. 4. Marijuana use. 5. History of benign brain tumor. RECOMMENDATIONS: Continue with current management and neurologic recommendations. M Taylor SIDDIQUI MD DR: SIMONA/candace JOB#: [id number] / [id number]
--- NOTE | 2018-01-28 09:56 | PDOC ---
ROSA REYES BUSINESS DEVELOPMENT ANALYST 01/28/18 0955: PROGRESS NOTES Diagnosis Problem Problems Medical Problems: (1) Syncope and collapse Status: Acute Assessment Problems We are seeing the patient for syncope 1. Syncope - likely from orthostatic hypotension (dehydration with IBS) Echocardiogram - unremarkable by report. No arrythmias on monitor. Labs improved. Cardiac kumar stable for discharge. Follow up as OP in two weeks -- Of note she had a Cardiac PET scan at [facility] in 2017 that showed normal perfusion. 2. Hypertension. Continue Lisinopril 20 mg daily. Avoid HCT for now Subjective No further lightheadedness with standing. Complains of room spinning when turns over in bed. Slept well and good appetite/oral intake. Denies chest pain /palpitations. Objective Vital Signs Date Time Temp Pulse Resp B/P (MAP) Pulse Ox O2 Delivery O2 Flow Rate FiO2 01/28/18 08:43 67 127/77 01/28/18 05:41 97.7 20 95 Room Air Intake and Output 01/28/18 07:00 Intake Total 2288.32 ml Balance 2288.32 ml Intake Oral 1020 ml IV Total 1268.32 ml # Voids 5 Abdomen: Normal bowel sounds, Soft, No tenderness Heart: Regular rate, Normal S1, Normal S2, No murmurs Extremities: No edema, Normal pulses General: Alert, Oriented X3, Cooperative HEENT: EOMI, Mucous membr. moist/pink Lungs: Clear to auscultation Psych/Mental Status: Mental status NL, Mood NL Review of Relevant I have reviewed the following items fiordaliza (where applicable) has been applied. Labs Laboratory Tests Test 01/27/18 02:07 01/27/18 02:24 01/27/18 02:30 01/27/18 04:36 White Blood Count 9.6 x10^3/uL (4.0-11.0) Red Blood Count 5.02 x10^6/uL (3.50-5.40) Hemoglobin 15.0 g/dL (12.0-15.5) Hematocrit 43.9 % (36.0-47.0) Mean Corpuscular Volume 88 fL (79-100) Mean Corpuscular Hemoglobin 30 pg (25-35) Mean Corpuscular Hemoglobin Concent 34 g/dL (31-37) Red Cell Distribution Width 14.5 % (11.5-14.5) Platelet Count 202 x10^3/uL (140-400) Neutrophils (%) (Auto) 61 % (31-73) Lymphocytes (%) (Auto) 32 % (24-48) Monocytes (%) (Auto) 5 % (0-9) Eosinophils (%) (Auto) 2 % (0-3) Basophils (%) (Auto) 1 % (0-3) Neutrophils # (Auto) 5.9 x10^3uL (1.8-7.7) Lymphocytes # (Auto) 3.0 x10^3/uL (1.0-4.8) Monocytes # (Auto) 0.5 x10^3/uL (0.0-1.1) Eosinophils # (Auto) 0.1 x10^3/uL (0.0-0.7) Basophils # (Auto) 0.1 x10^3/uL (0.0-0.2) Sodium Level 142 mmol/L (136-145) Potassium Level 3.1 mmol/L (3.5-5.1) Chloride Level 102 mmol/L (98-107) Carbon Dioxide Level 30 mmol/L (21-32) Anion Gap 10 (6-14) Blood Urea Nitrogen 9 mg/dL (7-20) Creatinine 1.2 mg/dL (0.6-1.0) Estimated GFR (Cockcroft-Gault) 46.1 Glucose Level 133 mg/dL (70-99) Calcium Level 8.9 mg/dL (8.5-10.1) Magnesium Level 2.1 mg/dL (1.8-2.4) Total Bilirubin 0.3 mg/dL (0.2-1.0) Direct Bilirubin 0.1 mg/dL (0.0-0.2) Aspartate Amino Transf (AST/SGOT) 22 U/L (15-37) Alanine Aminotransferase (ALT/SGPT) 35 U/L (14-59) Alkaline Phosphatase 78 U/L (46-116) Creatine Kinase 146 U/L (26-192) Creatine Kinase MB (Mass) < 0.5 ng/mL (0.0-3.6) Creatine Kinase MB Relative Index 0.3 % (0-4) Troponin I Quantitative < 0.017 ng/mL (0-0.055) [id number]-[id number]-Type Natriuretic Peptide 13 pg/mL (0-124) Total Protein 7.0 g/dL (6.4-8.2) Albumin 3.4 g/dL (3.4-5.0) Lipase 165 U/L (73-393) Thyroid Stimulating Hormone (TSH) 3.644 uIU/mL (0.358-3.740) Stool Occult Blood Positive (NEG) Urine Collection Type U cath Urine Color Yellow Urine Clarity Clear Urine pH 5.5 Urine Specific [place] >=1.030 Urine Protein 100 mg/dl (NEG-TRACE) Urine Glucose (UA) Neg mg/dL (NEG) Urine Ketones (Stick) Neg mg/dL (NEG) Urine Blood Neg (NEG) Urine Nitrite Neg (NEG) Urine Bilirubin Neg (NEG) Urine Urobilinogen Dipstick 0.2 mg/dL (0.2 mg/dL) Urine Leukocyte Esterase Neg (NEG) Urine RBC 0 /HPF (0-2) Urine WBC Rare /HPF (0-4) Urine Squamous Epithelial Cells Occ /LPF Urine Bacteria 0 /HPF (0-FEW) Urine Opiates Screen Neg (NEG) Urine Methadone Screen Neg (NEG) Urine Barbiturates Neg (NEG) Urine Phencyclidine Screen Neg (NEG) Urine Amphetamine/Methamphetamine Neg (NEG) Urine Benzodiazepines Screen Neg (NEG) Urine Cocaine Screen Neg (NEG) Urine Cannabinoids Screen Pos (NEG) Urine Ethyl Alcohol Neg (NEG) Prothrombin Time 11.6 SEC (9.4-11.4) Prothromb Time International Ratio 1.1 (0.9-1.1) Activated Partial Thromboplast Time 23 SEC (23-33) D-Dimer (Andreina) > 19.00 mg/L (0.00-0.50) Test 01/28/18 05:46 White Blood Count 7.5 x10^3/uL (4.0-11.0) Red Blood Count 4.49 x10^6/uL (3.50-5.40) Hemoglobin 13.4 g/dL (12.0-15.5) Hematocrit 39.6 % (36.0-47.0) Mean Corpuscular Volume 88 fL (79-100) Mean Corpuscular Hemoglobin 30 pg (25-35) Mean Corpuscular Hemoglobin Concent 34 g/dL (31-37) Red Cell Distribution Width 14.4 % (11.5-14.5) Platelet Count 204 x10^3/uL (140-400) Neutrophils (%) (Auto) 57 % (31-73) Lymphocytes (%) (Auto) 33 % (24-48) Monocytes (%) (Auto) 7 % (0-9) Eosinophils (%) (Auto) 2 % (0-3) Basophils (%) (Auto) 1 % (0-3) Neutrophils # (Auto) 4.3 x10^3uL (1.8-7.7) Lymphocytes # (Auto) 2.5 x10^3/uL (1.0-4.8) Monocytes # (Auto) 0.5 x10^3/uL (0.0-1.1) Eosinophils # (Auto) 0.2 x10^3/uL (0.0-0.7) Basophils # (Auto) 0.1 x10^3/uL (0.0-0.2) Sodium Level 143 mmol/L (136-145) Potassium Level 3.8 mmol/L (3.5-5.1) Chloride Level 107 mmol/L (98-107) Carbon Dioxide Level 32 mmol/L (21-32) Anion Gap 4 (6-14) Blood Urea Nitrogen 7 mg/dL (7-20) Creatinine 1.1 mg/dL (0.6-1.0) Estimated GFR (Cockcroft-Gault) 51.0 BUN/Creatinine Ratio 6 (6-20) Glucose Level 115 mg/dL (70-99) Calcium Level 8.2 mg/dL (8.5-10.1) Total Bilirubin 0.3 mg/dL (0.2-1.0) Aspartate Amino Transf (AST/SGOT) 17 U/L (15-37) Alanine Aminotransferase (ALT/SGPT) 29 U/L (14-59) Alkaline Phosphatase 69 U/L (46-116) Total Protein 6.2 g/dL (6.4-8.2) Albumin 3.0 g/dL (3.4-5.0) Albumin/Globulin Ratio 0.9 (1.0-1.7) Medications Current Medications Aspirin (Children'S Aspirin) 324 mg 1X ONCE PO Last administered on 01/27/18at 02:16; Start 01/27/18 at 02:00; Stop 01/27/18 at 02:01; Status DC Lactated Ringer's 1,000 ml @ 1,000 mls/hr Q1H IV Last administered on at 02:14; Start 01/27/18 at 02:00; Stop 01/27/18 at 02:59; Status DC Ondansetron HCl (Zofran Odt) 8 mg 1X ONCE PO Last administered on 01/27/18at 02 :15; Start 01/27/18 at 02:00; Stop 01/27/18 at 02:01; Status DC Fentanyl Citrate (Fentanyl 2ml Vial) 50 mcg 1X ONCE IM Last administered on at 02:15; Start 01/27/18 at 01:45; Stop 01/27/18 at 01:54; Status DC Potassium Chloride (KCl Oral Soln) 40 meq 1X ONCE PO Last administered on 01/27at 04:17; Start 01/27/18 at 04:00; Stop 01/27/18 at 04:11; Status DC Lactated Ringer's 1,000 ml @ 1,000 mls/hr 1X ONCE IV Last administered on at 04:26; Start 01/27/18 at 04:00; Stop 01/27/18 at 04:59; Status DC Albuterol/ Ipratropium (Duoneb) 3 ml RTQID NEB ; Start 01/27/18 at 08:00; Stop 01/28/18 at 07:59; Status DC Lactated Ringer's 1,000 ml @ 200 mls/hr Q5H IV ; Start 01/27/18 at 09:00; Stop 01/27/18 at 12:18; Status DC Ondansetron HCl (Zofran Odt) 8 mg PRN QID PRN PO VOMITING Last administered on 01/27/18at 16:57; Start 01/27/18 at 06:00 Aspirin (Children'S Aspirin) 81 mg DAILY PO ; Start 01/27/18 at 09:00; Stop at 12:15; Status DC Enoxaparin Sodium (Lovenox 100mg Syringe) 100 mg 1X ONCE SQ ; Start 01/27/18 at 06:00; Stop 01/27/18 at 12:15; Status DC Iohexol (Omnipaque 300 Mg/ml) 75 ml 1X ONCE IV Last administered on 01/27/18at 06:00; Start 01/27/18 at 06:00; Stop 01/27/18 at 06:01; Status DC Info (Do NOT chart on this entry -- for MONITORING) 1 each PRN DAILY PRN MC SEE COMMENTS; Start 01/27/18 at 06:00; Stop 01/29/18 at 05:59 Pneumococcal Polyvalent Vaccine (Pneumovax 23) 0.5 ml ONCE ONCE VAX IM ; Start 01/28/18 at 09:00; Stop 01/28/18 at 09:01; Status DC Potassium Chloride/Dextrose/ Sod Cl 1,000 ml @ 75 mls/hr [id number] IV Last administered on 01/28/18at 05:44; Start 01/27/18 at 11:30 Acetaminophen/ Hydrocodone Bitart (Lortab 7.5/325) 1 tab PRN Q6HRS PRN PO PAIN Last administered on 01/27/18at 12:39; Start 01/27/18 at 12:15 Bupropion HCl (Wellbutrin Sr) 100 mg DAILYWBKFT PO Last administered on at 08:42; Start 01/28/18 at 08:00 Non-Formulary Medication (Omeprazole ) 1 cap DAILY PO ; Start 01/28/18 at 09:00 ; Stop 01/28/18 at 09:00; Status DC Quetiapine Fumarate (SEROquel) 600 mg HS PO ; Start 01/27/18 at 21:00; Stop at 21:05; Status DC Acetaminophen (Tylenol) 650 mg PRN Q6HRS PRN PO PAIN / TEMP; Start 01/27/18 at 12:30 Pantoprazole Sodium (Protonix) 40 mg DAILYAC PO Last administered on 01/28/18at 08:42; Start 01/28/18 at 07:30 Iohexol (Omnipaque 240 Mg/ml) 50 ml STK-MED ONCE .ROUTE ; Start 01/27/18 at 12: 38; Stop 01/27/18 at 12:39; Status DC Ciprofloxacin Lactate 200 ml @ 200 mls/hr Q12HR IV Last administered on at 08:43; Start 01/27/18 at 21:00 Metronidazole 100 ml @ 100 mls/hr Q8HRS IV Last administered on 01/28/18at 05: 44; Start 01/27/18 at 22:00 Lisinopril (Prinivil) 10 mg BID PO Last administered on 01/28/18at 08:43; Start 01/28/18 at 09:00 Lisinopril (Prinivil) 10 mg 1X ONCE PO Last administered on 01/27/18at 16:57; Start 01/27/18 at 16:45; Stop 01/27/18 at 16:47; Status DC Quetiapine Fumarate (SEROquel) 450 mg HS PO Last administered on 01/27/18at 21: 28; Start 01/27/18 at 21:30 Active Scripts Active Reported Omeprazole 20 Mg Capsule.dr 1 Cap PO DAILY Lisinopril-Hctz 20-12.5 Mg Tab (Lisinopril/Hydrochlorothiazide) 1 Each Tablet 1 Tab PO DAILY Hydrocodone-Apap 7.5-325 (Hydrocodone Bit/Acetaminophen) 1 Each Tablet 1 Tab PO PRN Q6HRS PRN Bupropion Hcl Sr (Bupropion Hcl) 100 Mg Tablet.er 1 Tab PO DAILYWBKFT Seroquel (Quetiapine Fumarate) 300 Mg Tablet 1.5 Tab PO QHS Vitals/I & O Vital Sign - Last 24 Hours 01/27/18 01/27/18 01/27/18 01/27/18 10:50 10:52 12:39 13:32 Temp 98.2 98.2 Pulse 70 Resp 18 B/P (MAP) 102/59 (73) 102/59 (73) Pulse Ox 93 93 93 O2 Delivery Room Air Room Air Room Air 01/27/18 01/27/18 01/27/18 01/27/18 14:23 14:24 14:25 16:57 Temp 98.2 Pulse 105 78 85 85 Resp 20 B/P (MAP) 161/82 (108) 170/82 (111) 167/76 (106) 167/76 Pulse Ox 95 O2 Delivery Room Air 01/27/18 01/27/18 01/27/18 01/28/18 18:32 19:30 22:39 05:41 Temp 98.8 98.6 97.7 Pulse 63 79 67 Resp 20 18 20 B/P (MAP) 118/75 (89) 131/77 (95) 127/77 (94) Pulse Ox 96 94 95 O2 Delivery Room Air Room Air Room Air Room Air 01/28/18 08:43 Pulse 67 B/P (MAP) 127/77 Intake and Output 01/27/18 01/27/18 01/28/18 15:00 23:00 07:00 Intake Total 200 ml 767.49 ml 1320.83 ml Balance 200 ml 767.49 ml 1320.83 ml JOAQUÍN RUIZ Jr, MD 01/31/18 1107: PROGRESS NOTES Assessment The patient was seen by Rosa Reyes APRN and I have reviewed her findings and plan and agree with above. Due to staffing constraints, we did not have an attending available on this day to see the patient. MD INGRID Austin Jr., JANAE M APRN Jan 28, 2018 09:55 JOAQUÍN RUIZ Jr, MD Jan 31, 2018 11:07
[2018-01-28 10:50] VITALS: BP 129/71
[2018-01-28] MEDS ORDERED: LISI-334 PO (13:54)
[2018-01-28] MEDS ORDERED: CIPR500T PO (13:54)
[2018-01-28] MEDS ORDERED: METR500T PO (13:54)
--- NOTE | 2018-01-28 14:33 | DS ---
DATE OF DISCHARGE: 01/28/2018 HOSPITAL COURSE: The patient is a 57-year-old female patient who was admitted with recurrent syncopal episode preceded by tachycardia. She was also somewhat incontinent and I did consult the cardiology team for possible syncope versus obvious dehydration versus seizure. She has also some traumatic brain injury. She was started on IV fluid. The cardiology team felt that this is all the manifestations of dehydration. We did discontinue her hydrochlorothiazide and restarted her on lisinopril. We did a CT scan of the abdomen and pelvis, which showed that she has diffuse thickening of the descending colon with surrounding inflammatory fat stranding, likely colitis, and therefore, we started her on ciprofloxacin and Flagyl and she did very well. We checked her orthostatic blood pressure and showed no evidence of any orthostatic hypotension. She has been up and about, although she continued to feel dizzy. There is no evidence of orthostatic hypotension. She apparently is known to have benign positional paroxysmal vertigo. She was evaluated by the physical therapist and has been steady on her feet. Dr. Curtis saw her also and recommended carotid Doppler ultrasounds, which were unremarkable and he basically recommended following her as an outpatient and she should have also an MRI for her brain tumor. PHYSICAL EXAMINATION: GENERAL: When I saw her today, she looked well and was clearly in no apparent respiratory distress, slightly pale, but no jaundice, cyanosis, or thyromegaly. No jugular venous distension. No limb edema. VITAL SIGNS: Her heart rate was 70, blood pressure was 129/71, temperature was 98, respiratory rate 20, and oxygen saturation was 93%. HEAD, EYES, EARS, NOSE, AND THROAT: Normocephalic, atraumatic. NECK: Supple. HEART: Showed normal first and second heart sounds with no gallop, rub, or murmur. CHEST: Clear to auscultation. No crepitation or rhonchi. ABDOMEN: Distended, soft, nontender. NEUROLOGIC: She is awake, alert, responding appropriately. All cranial nerves intact. She moves extremities without difficulty. She ambulates without assistance or assistive devices. Her intake over the last 24 hours was 2300, no output was recorded. LABORATORY DATA: Her lab work this morning showed a white cell count of 7500, hemoglobin 13, hematocrit 39, MCV 88, and platelet count of 204,000. Her serum sodium 143, potassium 3.8, chloride 107, bicarbonate 32, anion gap of 4, BUN 7, creatinine was 1.1, estimated GFR was 51 mL per minute. Her glucose was 115, calcium was 8.2. Total bilirubin, AST, ALT, alkaline phosphatase were normal. Her total protein was 6.2, albumin 3. TSH was 3.644, lipase 165. Her prothrombin time was 11.6, INR of 1.1, aPTT was 23. D-dimer was extremely high at 19. Urinalysis was unremarkable and urine toxicology was negative except for cannabinoids. She has had CT scan of the head, which showed mild encephalomalacia, underlying left temporal craniotomy correlate with surgical history. Her chest x-ray was unremarkable as well as her x-ray of the abdomen. CT angiogram showed that there is no pulmonary embolism. Bilateral lower extremity venous Doppler ultrasound showed no evidence of deep vein thrombosis from the bilateral common femoral to brachial veins. She does have bilateral carotid Doppler sonogram, which showed that the patient has elevated peak systolic velocities and diastolic velocities within the left internal carotid artery. Despite normal internal carotid to common carotid artery ratio, this suggests a 50-69% stenosis. No hemodynamically significant stenosis within the right internal carotid artery or bilateral vertebral arteries. DISCHARGE MEDICATIONS: The patient will be discharged to continue on following medication: Ciprofloxacin 500 mg twice a day for 8 days, lisinopril 20 mg once a day, metronidazole, Flagyl 500 mg 3 times a day, Wellbutrin SR 100 mg once a day, hydrocodone/APAP 7.5/325 one tablet every 6 hours, omeprazole 20 mg once a day, quetiapine fumarate 150 mg at bedtime. FINAL DISCHARGE DIAGNOSES: Syncope likely due to dehydration, infectious colitis. Other medical problems include irritable bowel syndrome, brain tumor, hypertension, posttraumatic stress disorder, insomnia, and bipolar disorder. HUY SOW MD DR: LARISA/candace JOB#: [id number] / [id number]
[2018-01-28] MEDS ORDERED: LACTOBACILLUS RHAMNOSUS GG 1 CAPSULE. PO SCH (21:00)
--- NOTE | 2018-02-01 09:10 | CARD ---
MR#: [id number] Date of Study: 01/27/2018 Ordering Physician: ROSA QUINTERO, Referring Physician: HUY SOW Tech: SERGEI Granda APPROVED REPORT EXAM: Two-dimensional and M-mode echocardiogram with Doppler and color Doppler. Other Information Quality : AverageHR: 69bpm INDICATION Syncope RISK FACTORS Obesity 2D DIMENSIONS RVDd3.2 (2.9-3.5cm)Left Atrium(2D)3.5 (1.6-4.0cm) IVSd1.1 (0.7-1.1cm)Aortic Root(2D)2.8 (2.0-3.7cm) LVDd4.2 (3.9-5.9cm)LVOT Diameter1.9 (1.8-2.4cm) PWd1.1 (0.7-1.1cm)LVDs2.3 (2.5-4.0cm) FS (%) 46.4 %SV63.1 ml LVEF(%)78.1 (>50%) Aortic Valve AoV Peak Ketan.173.3cm/sAoV VTI35.7cm AO Peak GR.12.0mmHgLVOT Peak Ketan.134.5cm/s LVOT VTI 27.33cmAO Mean GR.6mmHg TAZ (VMAX)2.23uq0AGO (VTI)2.15cm2 Mitral Valve MV E Icdvulgm051.0cm/sMV DECEL ACSH752wx MV A Bfmholta19.4cm/sE/A Ratio1.5 Pulmonary Valve PV Peak Mahqgnug034.9cm/sPV Peak Grad.8mmHg Tricuspid Valve TR P. Awhdqxbc110hm/sTR Peak Gr.8mmHg Pulmonary Vein S1 Xaggzjuw48.3cm/sD2 Uisqmzub98.2cm/s LEFT VENTRICLE The left ventricle is normal size. There is mild left ventricular hypertrophy. The left ventricular s ystolic function is normal with an estimated ejection fraction of 60-65%. There is normal LV segmenta l wall motion. The left ventricular diastolic function and filling is normal for age. RIGHT VENTRICLE The right ventricle is normal size. The right ventricular systolic function is normal. ATRIA The left atrium size is normal. The right atrium size is normal. AORTIC VALVE The aortic valve appears tricuspid. There is mild aortic valve sclerosis. Doppler and Color Flow reve aled no significant aortic regurgitation. There is no significant aortic valvular stenosis. MITRAL VALVE The mitral valve is thickened but opens well. There is no mitral valve stenosis. Doppler and Color Fl ow revealed no mitral valve regurgitation. TRICUSPID VALVE The tricuspid valve is not well visualized. There is trace tricuspid regurgitation. Unable to estimat e the pulmonary artery pressure. PULMONIC VALVE The pulmonic valve is not well visualized. There is trace pulmonic valvular regurgitation. GREAT VESSELS The aortic root is normal in size. The ascending aorta was not well seen. The IVC is normal in size a nd collapses >50% with inspiration. PERICARDIAL EFFUSION There is no evidence of significant pericardial effusion. Critical Notification Critical Value: No <Conclusion> The left ventricle is normal size. There is mild left ventricular hypertrophy. There is normal LV segmental wall motion. The left ventricular systolic function is normal with an estimated ejection fraction of 60-65%. The left ventricular diastolic function and filling is normal for age. There is mild aortic valve sclerosis. Unable to estimate the pulmonary artery pressure. Signed by : Austin Olguin JR, MD Electronically Approved : 02/01/2018 09:08:42
== END 2018-01-28 14:40 | disposition home or self-care (01) | DRG 392 ==
LOC: ER 01:31 → 1 SOUTH 05:38
PROVIDERS: ADMIT Internal Medicine; ATTEND Internal Medicine
DX: A09 Infectious gastroenteritis and colitis, unspecified (principal); D49.6 Neoplasm of unspecified behavior of brain; E86.0 Dehydration; E87.6 Hypokalemia; F12.90 Cannabis use, unspecified, uncomplicated; F17.210 Nicotine dependence, cigarettes, uncomplicated; F31.9 Bipolar disorder, unspecified; F43.10 Post-traumatic stress disorder, unspecified; F51.04 Psychophysiologic insomnia; H81.10 Benign paroxysmal vertigo, unspecified ear; H83.09 Labyrinthitis, unspecified ear; I10 Essential (primary) hypertension; K21.9 Gastro-esophageal reflux disease without esophagitis; K58.9 Irritable bowel syndrome, unspecified; K59.09 Other constipation; S06.9X0A Unspecified intracranial injury without loss of consciousness, initial encounter; W18.39XA Other fall on same level, initial encounter; Z79.899 Other long term (current) drug therapy; Z82.49 Family history of ischemic heart disease and other diseases of the circulatory system; Z86.011 Personal history of benign neoplasm of the brain; Z90.49 Acquired absence of other specified parts of digestive tract; Z90.710 Acquired absence of both cervix and uterus; Z98.1 Arthrodesis status; Y93.89 Activity, other specified; Y92.89 Other specified places as the place of occurrence of the external cause; Y99.8 Other external cause status
CPT/HCPCS: 36415; 70450; 71046; 71275; 74021; 74176; 80048; 80053; 80076; 80307; 81001; 82274; 82553; 83690; 83735; 83880; 84443; 84484; 85025; 85379; 85610; 85730; 93005; 93306; 93880; 93970; 96360; 96361; J0744; J3010; J3490; J7042; J7120; Q0162; Q9967; 99285-25; G0479